=== PATIENT | male | born 1990 | race American Indian/Alaskan Native ===

== ENCOUNTER 2019-08-01 00:16 | Emergency (ER) | payer SELFPAY ==
[2019-08-01 00:29] VITALS: BP 130/93
[2019-08-01] MEDS ORDERED: ACETAMINOPHEN 500 MG TAB PO ONE (00:30)
[2019-08-01] MEDS ORDERED: ALUM-MAG HYDROXIDE-SIMETHICONE 200-200-20MG/5ML ORAL LIQD 30 ML PO ONE (00:30)
[2019-08-01] MEDS ORDERED: KETOROLAC 30 MG/1 ML INJ IV ONE (00:30)
--- NOTE | 2019-08-01 00:35 | Emergency Department Report ---
ED Chest Pain HPI - General Chief Complaint: Chest Pain Stated Complaint: CHEST PAIN Time Seen by Provider: 08/01/19 00:26 Source: EMS Mode of arrival: Stretcher Limitations: No Limitations - History of Present Illness Initial Comments: Mr. Cline is a healthy 29-year-old male who presents with sudden onset of left- sided chest pain moderate in severity which began 5 PM 7 hours prior to arrival while at work. Pain is 710 in severity without radiation. Pain is worse when he sits up. No shortness of breath. Has had mild nonproductive cough. Denies fever. He has had chest pain on similar occasion. Normally the pain is resolved with drinking a liquid. Pain is persistent at rest. MD Complaint: chest pain -: Sudden, This evening Onset: during rest Pain Location: left chest Pain Radiation: none Severity: severe Severity scale (0 -10): 7 Quality: sharp Consistency: constant Improves With: other (Semi-supine position) Worsens With: other (Sitting up) Other Symptoms: cough - Related Data Allergies Allergy/AdvReac Type Severity Reaction Status Date / Time No Known Allergies Allergy Unverified 08/01/19 00:30 Heart Score - HEART Score History: Slightly suspicious EKG: Normal Age: < 45 Risk factors: No known risk factors Troponin: < normal limit HEART Score: 0 ED Review of Systems ROS: Stated complaint: CHEST PAIN Other details as noted in HPI Comment: All other systems reviewed and negative Constitutional: denies: fever, malaise Respiratory: denies: cough, shortness of breath Cardiovascular: chest pain ED Past Medical Hx - Past Medical History Previous Medical History?: No - Surgical History Past Surgical History?: No - Family History Family history: no significant - Social History Smoking Status: Never Smoker Substance Use Type: Marijuana ED Physical Exam - General Limitations: No Limitations General appearance: alert, in no apparent distress - Head Head exam: Present: atraumatic, normocephalic - Eye Eye exam: Present: normal appearance - ENT ENT exam: Present: mucous membranes moist - Neck Neck exam: Present: normal inspection, full ROM - Respiratory Respiratory exam: Present: normal lung sounds bilaterally. Absent: respiratory distress, wheezes, rales, rhonchi - Cardiovascular Cardiovascular Exam: Present: regular rate, normal rhythm. Absent: normal heart sounds, systolic murmur, diastolic murmur, rubs, gallop - GI/Abdominal GI/Abdominal exam: Present: soft, normal bowel sounds. Absent: distended, tenderness, guarding, rebound - Rectal Rectal exam: Present: deferred - Extremities Exam Extremities exam: Present: normal inspection - Neurological Exam Neurological exam: Present: alert, oriented X3 - Psychiatric Psychiatric exam: Present: normal affect, normal mood - Skin Skin exam: Present: warm, dry, intact, normal color. Absent: rash ED Course Vital Signs 08/01/19 08/01/19 00:27 00:29 Temperature 99.0 F 99.0 F Pulse Rate 60 60 Respiratory 20 20 Rate Blood Pressure 130/93 Blood Pressure 130/93 [Right] O2 Sat by Pulse 96 96 Oximetry ED Medical Decision Making - EKG Data -: EKG Interpreted by Me EKG shows normal: sinus rhythm, axis, intervals, QRS complexes, ST-T waves Rate: normal - EKG Data Interpretation: normal EKG - Radiology Data Radiology results: report reviewed AP portable chest radiograph: No acute findings according to radiologist impression no pneumothorax no infiltrate - Medical Decision Making Mr. Cline presents with recurrent chest pain. Persistent today. Pain is positional which is normally relieved with fluid intake. Differential diagnosis includes chest wall pain versus esophagitis. With work-up today, pericarditis, pulmonary embolism, pneumothorax acute aortic abnormality has been ruled out. PERC negative for pulmonary embolism. Recommended famotidine Tylenol [id number]. Discharged home in stable condition. Critical care attestation.: If time is entered above; I have spent that time in minutes in the direct care of this critically ill patient, excluding procedure time. ED Disposition Clinical Impression: Chest pain Disposition: DC-01 TO HOME OR SELFCARE Is pt being admited?: No Does the pt Need Aspirin: No Condition: Stable Instructions: Chest Pain (ED) Referrals: ANNIE MACDONALD MD [Staff Physician] - 3-5 Days Forms: Work/School Release Form(ED)
[2019-08-01] MEDS ORDERED: ONDANSETRON 4 MG/2 ML INJ IV ONE (00:43)
--- NOTE | 2019-08-01 00:56 | XRay Report ---
CHEST 1 VIEW INDICATION: chest pain. COMPARISON: None. FINDINGS: Support devices: None. Heart: Normal. Lungs/Pleura: No acute pulmonary or pleural findings. IMPRESSION: 1. No acute findings. Signer Name: Patel Lynn MD Signed: 08/01/2019 12:52 AM Workstation Name: [id number]
== END 2019-08-01 01:48 | disposition home or self-care (01) ==
LOC: ED 00:16
DX: R07.89 Other chest pain (principal); R05 Cough
CPT/HCPCS: 71045; 93005; 93010; 96374; 96375; 99284; J1885; J2405